=== PATIENT | female | born 1935 | race Caucasian/White ===

== ENCOUNTER 2023-06-23 12:51 | Emergency (ER) | payer OTHER ==
[~2023-06-23] VITALS: Ht 172.7 cm; Wt 60.0 kg
[2023-06-23 12:58] VITALS: O2SAT 98
[2023-06-23 14:10] LABS: BASOPHILS % 0.7 % (0.0-2.0); EOSINOPHILS % 2.3 % (0.0-5.0); HEMATOCRIT. 34.8 % (36.0-48.0); HEMOGLOBIN. 11.5 g/dL (12.0-16.0); MEAN CORPUSCULAR HEMOGLOBIN 29.8 pg (28.0-32.0); MEAN CORPUSCULAR VOLUME 90.3 fL (81.0-99.0); MEAN PLATELET VOLUME 8.5 fl (7.4-10.4); MONOCYTES % 7.1 % (2.0-8.0); NEUTROPHILS % 69.9 % (40.0-76.0); PLATELET 190 x1000/uL (130-400); RED BLOOD CELL COUNT 3.85 mill/uL (4.2-5.4); RED CELL DISTRIBUTION WIDTH 15.2 % (11.6-14.6); WHITE BLOOD COUNT 7.4 x1000/uL (4.5-11.0)
[2023-06-23 14:23] LABS: INR 1.4; PROTHROMBIN TIME 15.7 sec (9.6-11.0)
[2023-06-23 14:26] LABS: ALANINE AMINOTRANSFERASE 19 IU/L (10-49); ALBUMIN 3.2 g/dL (3.2-4.8); ASPARTATE AMINOTRANSFERASE 34 IU/L (<34); BILIRUBIN TOTAL 1.3 mg/dL (0.1-1.0); CALCIUM 8.5 mg/dL (8.7-10.4); CARBON DIOXIDE 30 mEq/L (21-32); CHLORIDE 108 mEq/L (98-107); CREATININE 0.7 mg/dL (0.6-1.0); GLUCOSE 112 mg/dL (70-105); PROTEIN TOTAL 5.6 g/dL (6.0-8.3); SODIUM 141 mEq/L (136-145); TROPONIN I HIGH SENSITIVITY 9 ng/L (3.0-34); UREA NITROGEN BLOOD 10 mg/dL (9-23)
[2023-06-23 17:05] LABS: TROPONIN I HIGH SENSITIVITY 7 ng/L (3.0-34)
[2023-06-23] MEDS: SODIUM CHLORIDE 0.9% 1,000 ML IV ONE (20:27)
[2023-06-23] MEDS: SODIUM CHLORIDE 0.9% 500 ML IV ONE (21:00)
[2023-06-23 23:31] VITALS: BP 103/72; PULSE 112; RESP 14; TEMP 98.8
== END 2023-06-24 00:10 | disposition short-term general hospital (02) ==
LOC: ER 13:39 → CANBEDREQ 17:53 → ER 06-24 00:10
DX: R55 Syncope and collapse (principal); K80.20 Calculus of gallbladder without cholecystitis without obstruction; K85.90 Acute pancreatitis without necrosis or infection, unspecified
CPT/HCPCS: 99285; 70450; 96360; 76705; 71045; 96361; 80053; 83880; 83605; 83690; 83735; 85025; 85610; 85730; 87040; 84484; 36415; 74176; 93005; J7040; J7030